=== PATIENT | female | born 1965 | race Caucasian/White ===

== ENCOUNTER → 2016-06-25 | Outpatient (REF) | payer MEDICAID | LOC: M LAB REF 12:56 | PROVIDERS: ATTEND Physician Assistant | DX: J02.9 Acute pharyngitis, unspecified (principal) ==

== ENCOUNTER 2024-10-12 06:23 | Day surgery (SDC) | payer OTHER ==
[~2024-10-12] VITALS: Ht 154.9 cm; Wt 83.0 kg
[~2024-10-12 06:23] MED LIST: CARV12.5 PO; MELO15TA28 PO; METF500T13 PO; ROSU10TA61 PO
[2024-10-12] MEDS: CYCLOPENTOLATE 1% OPHTH SOLN 2 ML BTL OD SCH (06:48)
[2024-10-12] MEDS: TETRACAINE 0.5% OPHTH SOLN 4ML OD SCH (06:48)
[2024-10-12] MEDS: FLURBIPROFEN 0.03% OPHTH SOLN 2.5 ML OD SCH (06:49)
[2024-10-12] MEDS: PHENYLEPHRINE 2.5% OPHTH SOL 2ML OD SCH (06:49)
[2024-10-12] MEDS ORDERED: LR 1,000 ML IV SCH (07:00)
[2024-10-12] MEDS ORDERED: MIDAZOLAM INJ 2 MG/2 ML VIAL As Ordered ONE (07:00)
[2024-10-12] MEDS ORDERED: TRYPAN BLUE 0.06 % 2.25 ML OPHTH SYR (VISIONBLUE) As Ordered ONE (07:17)
[2024-10-12] MEDS: CEFUROXIME 1 MG/0.1 ML INTRACAMERAL INJ As Ordered ONE (07:50)
[2024-10-12] MEDS: LIDOCAINE 1% SDV 5 ML VIAL As Ordered ONE (07:50)
[2024-10-12 08:40] VITALS: BP 171/81; TEMP 97.3; O2SAT 98
== END 2024-10-12 08:52 | disposition home or self-care (01) ==
LOC: M SDC 06:23
PROVIDERS: ATTEND Ophthalmology
DX: H25.21 Age-related cataract, morgagnian type, right eye (principal); Z79.899 Other long term (current) drug therapy
CPT/HCPCS: 66982; J0697; J2250; J3010; V2632